=== PATIENT | male | born 2000 | race Two or more races ===

== ENCOUNTER 2023-09-24 01:06 | Emergency (ER) | payer OTHER ==
[~2023-09-24] VITALS: Ht 185.4 cm; Wt 81.6 kg
[2023-09-24] MEDS ORDERED: ACETAMINOPHEN 500 MG GEL..CAP PO ONE (02:00)
[2023-09-24] MEDS ORDERED: CETIRIZINE HCL 5 MG/5 ML ML PO ONE (02:00)
[2023-09-24] MEDS ORDERED: GUAIFENESIN/DEXTROMETHORPHAN 100 MG/5 ML ML PO ONE (02:00)
[2023-09-24 02:16] LABS: HEMATOCRIT 39.3 % (39.0-48.0); HEMOGLOBIN 13.9 g/dL (13-16.00); MEAN CELL VOLUME 86.1 fL (80.0-100.00); MEAN CORPUSCULAR HEMOGLOBIN 30.5 pg (27.00-32.0); MEAN CORPUSCULAR HGB CONC 35.4 g/dl (32.0-36.0); PLATELET COUNT 159 K/uL (150-450); RED BLOOD COUNT 4.57 M/uL (4.00-6.00); RED CELL DISTRIBUTION WIDTH 12.6 % (11.5-14.5)
[2023-09-24] MEDS ORDERED: PEPCID AC20 MG PO (03:01)
[2023-09-24] MEDS ORDERED: TUSNEL LIQUID178 ML PO (03:01)
[2023-09-24] MEDS ORDERED: OSEL75CA PO (03:01)
== END 2023-09-24 03:12 | disposition home or self-care (01) ==
LOC: ER 01:06
PROVIDERS: General Practice
DX: J10.1 Influenza due to other identified influenza virus with other respiratory manifestations (principal); Z20.822 Contact with and (suspected) exposure to COVID-19